=== PATIENT | female | born 1940 | race Caucasian/White ===

== ENCOUNTER → 2016-12-20 18:06 | Emergency (ER) | payer MEDICARE, BC ==
[~2016-12-20 18:06] MED LIST: ACYCLOVIR PO; AVAPRO PO; AXID AR75 MG PO; CARTIA XT PO; KEFLEX PO; MAXZIDE 75/50 T1 TAB PO; TIMOPTIC-XE5 ML OP; TRAVATAN5 ML OP
== END | disposition home or self-care (01) ==
LOC: CED 18:06
DX: I46.9 Cardiac arrest, cause unspecified (principal); I10 Essential (primary) hypertension; Z79.899 Other long term (current) drug therapy
CPT/HCPCS: 92950; 99285